=== PATIENT | female | born 1950 | race Caucasian/White ===

== ENCOUNTER → 2018-09-10 08:43 | Outpatient (CLI) | payer OTHER | END | disposition home or self-care (01) | LOC: D.RAD 08:43 | PROVIDERS: ATTEND Internal Medicine Gastroenterology | DX: K44.9 Diaphragmatic hernia without obstruction or gangrene (principal); K21.9 Gastro-esophageal reflux disease without esophagitis ==

== ENCOUNTER 2019-06-04 06:40 | Outpatient (CLI) | payer OTHER ==
--- NOTE | 2019-06-04 09:30 | NUR ---
[id number] COMPLETED MANOMETRY. TOLERATED WELL. DC'D HOME AMBULATORY. NO S/S OF DISTRESS NOTED.
== END 2019-06-04 07:55 | disposition home or self-care (01) ==
LOC: D.OPS 06:40
PROVIDERS: ATTEND Surgery
DX: K21.9 Gastro-esophageal reflux disease without esophagitis (principal); K44.9 Diaphragmatic hernia without obstruction or gangrene